=== PATIENT | male | born 2000 | race Hispanic/Latino ===

== ENCOUNTER 2020-05-17 19:09 | Inpatient (IN) | payer SELFPAY ==
[~2020-05-17] VITALS: Ht 154.9 cm; Wt 41.2 kg
[2020-05-17] MEDS ORDERED: IBUPROFEN 400 MG TABLET ONE (19:51)
[2020-05-17] MEDS ORDERED: ACETAMINOPHEN 325 MG TAB ONE (19:52)
[2020-05-17] MEDS ORDERED: CYCLOBENZAPRINE HCL 10 MG TABLET ONE (19:52)
[2020-05-17 20:49] LABS: BASOPHILS % (AUTO) 0.4 % (0.0-5.0); EOSINOPHILS % (AUTO) 0.6 % (0.0-8.0); HEMATOCRIT 46.4 % (42-54); LYMPHOCYTES % (AUTO) 16.6 % (21.0-51.0); MEAN CORPUSCULAR HGB CONC 34.9 g/dL (32.0-36.0); MEAN CORPUSCULAR VOLUME 85.9 fL (80-100); MONOCYTES % (AUTO) 4.4 % (3.0-13.0); NEUTROPHILS % (AUTO) 77.7 % (40.0-77.0); PLATELET COUNT (AUTO) 269 K/uL (130-400); RED CELL DISTRIBUTION WIDTH 12.4 % (11.0-15.5); WHITE BLOOD COUNT (AUTO) 9.4 K/uL (4.8-10.8)
[2020-05-17 21:02] LABS: CREATININE 0.8 mg/dL (0.5-1.5); POTASSIUM 3.6 mmol/L (3.5-5.1)
[2020-05-17] MEDS ORDERED: KETAMINE 50MG/ML SYRINGE 50 MG/ML DISP.SYRIN IV ONE (21:03)
[2020-05-17 21:06] LABS: ALBUMIN 4.6 g/dL (3.5-5.0); BILIRUBIN,TOTAL 0.3 mg/dL (0.2-1.0); INR 1.1 (0.85-1.15); PROTHROMBIN TIME 11.7 SEC (9.6-11.6)
[2020-05-17 21:36] LABS: AMPHET/METH SCREEN,URINE NEGATIVE (NEGATIVE); BARBITURATE SCREEN, URINE NEGATIVE (NEGATIVE); BENZODIAZEPINES SCREEN,URINE NEGATIVE (NEGATIVE); CANNABINOID SCREEN,URINE NEGATIVE (NEGATIVE); COCAINE SCREEN,URINE NEGATIVE (NEGATIVE); OPIATE SCREEN,URINE NEGATIVE (NEGATIVE); PHENCYCLIDINE SCREEN,URINE NEGATIVE (NEGATIVE)
[2020-05-17] MEDS ORDERED: ACETAMINOPHEN 325 MG TAB PO PRN ×2 (22:30)
[2020-05-17] MEDS ORDERED: ONDANSETRON HCL 4 MG/2 ML VIAL IV PRN (22:30)
[2020-05-18] MEDS ORDERED: ONDANSETRON HCL 4 MG/2 ML VIAL ONE (09:36)
[2020-05-18] MEDS ORDERED: FAMOTIDINE/PF 20 MG/2 ML VIAL IV ONE ×2 (09:37→20:00)
[2020-05-18] MEDS ORDERED: MORPHINE SULFATE 2 MG/ML 1ML SYG ONE ×2 (09:37→19:59)
[2020-05-18] MEDS: FAMOTIDINE/PF 20 MG/2 ML VIAL IV SCH (21:00)
[2020-05-19] VITALS (7 sets, daily range): BP systolic 103–127; BP diastolic 59–78
[2020-05-19] MEDS ORDERED: MORPHINE SULFATE 2 MG/ML 1ML SYG ONE ×2 (01:20→01:57)
[2020-05-19] MEDS: ACETAMINOPHEN-CODEINE 300/30MG TAB PO PRN (06:13)
[2020-05-19 07:04] LABS: BASOPHILS % (AUTO) 0.6 % (0.0-5.0); EOSINOPHILS % (AUTO) 1.5 % (0.0-8.0); MEAN CORPUSCULAR HGB CONC 34.4 g/dL (32.0-36.0); MEAN CORPUSCULAR VOLUME 87.2 fL (80-100); MONOCYTES % (AUTO) 5.4 % (3.0-13.0); NEUTROPHILS % (AUTO) 72.4 % (40.0-77.0); PLATELET COUNT (AUTO) 231 K/uL (130-400); RED BLOOD CELL COUNT(AUTO) 5.16 MIL/uL (4.50-6.20); RED CELL DISTRIBUTION WIDTH 12.3 % (11.0-15.5); WHITE BLOOD COUNT (AUTO) 8.1 K/uL (4.8-10.8)
[2020-05-19 07:18] LABS: CREATININE 0.9 mg/dL (0.5-1.5)
[2020-05-19] MEDS: FAMOTIDINE/PF 20 MG/2 ML VIAL IV SCH ×2 (08:50→19:46)
[2020-05-19] MEDS: MORPHINE SULFATE 2 MG/ML 1ML SYG IVP PRN (19:47)
[2020-05-20 03:41] VITALS: BP 108/65
[2020-05-20 05:08] LABS: BASOPHILS % (AUTO) 0.8 % (0.0-5.0); EOSINOPHILS % (AUTO) 3.2 % (0.0-8.0); HEMATOCRIT 42.8 % (42-54); MEAN CORPUSCULAR HEMOGLOBIN 29.9 pg (27.0-33.0); MEAN CORPUSCULAR HGB CONC 34.6 g/dL (32.0-36.0); MEAN CORPUSCULAR VOLUME 86.5 fL (80-100); NEUTROPHILS % (AUTO) 56.7 % (40.0-77.0); PLATELET COUNT (AUTO) 231 K/uL (130-400); RED BLOOD CELL COUNT(AUTO) 4.95 MIL/uL (4.50-6.20); RED CELL DISTRIBUTION WIDTH 12.3 % (11.0-15.5); WHITE BLOOD COUNT (AUTO) 6.3 K/uL (4.8-10.8)
[2020-05-20 05:19] LABS: CREATININE 0.9 mg/dL (0.5-1.5); POTASSIUM 3.9 mmol/L (3.5-5.1)
[2020-05-20 08:52] VITALS: BP 106/58
[2020-05-20] MEDS: FAMOTIDINE/PF 20 MG/2 ML VIAL IV SCH ×2 (08:54→19:59)
[2020-05-20 11:52] VITALS: BP 108/66
[2020-05-20 16:00] VITALS: BP 100/67
[2020-05-20 19:26] VITALS: BP 107/63
[2020-05-20 23:22] VITALS: BP 102/59
[2020-05-21 03:44] VITALS: BP 108/57
[2020-05-21 04:52] LABS: BASOPHILS % (AUTO) 0.8 % (0.0-5.0); HEMATOCRIT 42.4 % (42-54); LYMPHOCYTES % (AUTO) 30.2 % (21.0-51.0); MEAN CORPUSCULAR HEMOGLOBIN 29.5 pg (27.0-33.0); MEAN CORPUSCULAR HGB CONC 34.4 g/dL (32.0-36.0); MEAN CORPUSCULAR VOLUME 85.7 fL (80-100); MONOCYTES % (AUTO) 6.8 % (3.0-13.0); PLATELET COUNT (AUTO) 228 K/uL (130-400); RED BLOOD CELL COUNT(AUTO) 4.95 MIL/uL (4.50-6.20); RED CELL DISTRIBUTION WIDTH 11.9 % (11.0-15.5); WHITE BLOOD COUNT (AUTO) 6.3 K/uL (4.8-10.8)
[2020-05-21 05:13] LABS: CREATININE 0.8 mg/dL (0.5-1.5); POTASSIUM 3.7 mmol/L (3.5-5.1)
[2020-05-21 08:00] VITALS: BP 114/72
[2020-05-21] MEDS: FAMOTIDINE/PF 20 MG/2 ML VIAL IV SCH ×2 (09:32→20:10)
[2020-05-21 12:55] VITALS: BP 109/71
[2020-05-21] MEDS: MORPHINE SULFATE 2 MG/ML 1ML SYG IVP PRN (15:53)
[2020-05-21] MEDS: LACTULOSE 20 GM/30 ML UDCUP PO PRN (15:53)
[2020-05-21 16:00] VITALS: BP 102/67
[2020-05-21 19:36] VITALS: BP 114/57
[2020-05-21 23:38] VITALS: BP 108/57
[2020-05-22 03:43] VITALS: BP 111/71
[2020-05-22] MEDS: MORPHINE SULFATE 2 MG/ML 1ML SYG IVP PRN (04:08)
[2020-05-22 07:51] VITALS: BP 102/53
[2020-05-22] MEDS: FAMOTIDINE/PF 20 MG/2 ML VIAL IV SCH ×2 (09:10→20:06)
[2020-05-22 11:18] VITALS: BP 99/48
[2020-05-22 16:00] VITALS: BP 109/50
[2020-05-22] MEDS: LACTULOSE 20 GM/30 ML UDCUP PO PRN (17:16)
[2020-05-22 20:00] VITALS: BP 116/57
[2020-05-23] VITALS: BP 106/62
[2020-05-23 04:00] VITALS: BP 104/69
[2020-05-23 07:42] VITALS: BP 109/59
[2020-05-23] MEDS: FAMOTIDINE/PF 20 MG/2 ML VIAL IV SCH ×2 (08:12→20:16)
[2020-05-23] MEDS: LACTULOSE 20 GM/30 ML UDCUP PO PRN (08:12)
[2020-05-23 10:38] VITALS: BP 110/55
[2020-05-23 16:28] VITALS: BP 110/57
[2020-05-23] MEDS: MORPHINE SULFATE 2 MG/ML 1ML SYG IVP PRN (17:38)
[2020-05-23 20:00] VITALS: BP 102/65
[2020-05-24] VITALS (7 sets, daily range): BP systolic 96–111; BP diastolic 54–64
[2020-05-24] MEDS: FAMOTIDINE/PF 20 MG/2 ML VIAL IV SCH ×2 (08:13→20:13)
[2020-05-24] MEDS: ACETAMINOPHEN-CODEINE 300/30MG TAB PO PRN (15:16)
[2020-05-24] MEDS: MORPHINE SULFATE 2 MG/ML 1ML SYG IVP PRN (15:42)
[2020-05-24 19:25] LABS: HEMOGLOBIN A1C 5.2 % (4.0-6.0)
[2020-05-25] VITALS (10 sets, daily range): BP systolic 100–147; BP diastolic 60–108
[2020-05-25 05:40] LABS: BASOPHILS % (AUTO) 0.7 % (0.0-5.0); EOSINOPHILS % (AUTO) 3.8 % (0.0-8.0); HEMATOCRIT 43.5 % (42-54); LYMPHOCYTES % (AUTO) 26.3 % (21.0-51.0); MEAN CORPUSCULAR HEMOGLOBIN 29.3 pg (27.0-33.0); MEAN CORPUSCULAR HGB CONC 34.3 g/dL (32.0-36.0); MEAN CORPUSCULAR VOLUME 85.5 fL (80-100); NEUTROPHILS % (AUTO) 61.9 % (40.0-77.0); PLATELET COUNT (AUTO) 264 K/uL (130-400); RED BLOOD CELL COUNT(AUTO) 5.09 MIL/uL (4.50-6.20); RED CELL DISTRIBUTION WIDTH 11.9 % (11.0-15.5); WHITE BLOOD COUNT (AUTO) 7.6 K/uL (4.8-10.8)
[2020-05-25 05:59] LABS: INR 1.12 (0.85-1.15); PROTHROMBIN TIME 11.9 SEC (9.6-11.6)
[2020-05-25 06:01] LABS: PARTIAL THROMBOPLASTIN TIME 30.1 SEC (26.3-35.5)
[2020-05-25 06:08] LABS: CREATININE 0.8 mg/dL (0.5-1.5); POTASSIUM 3.8 mmol/L (3.5-5.1)
[2020-05-25] MEDS: FAMOTIDINE/PF 20 MG/2 ML VIAL IV SCH ×2 (11:34→20:18)
[2020-05-25] MEDS: MORPHINE SULFATE 2 MG/ML 1ML SYG IVP PRN (11:35)
[2020-05-25] MEDS ORDERED: CEFAZOLIN SODIUM 1 GM VIAL IVP PRN (12:00)
[2020-05-25] MEDS ORDERED: CEFAZOLIN SODIUM 1 GM VIAL ONE (15:05)
[2020-05-25] MEDS ORDERED: ONDANSETRON HCL 4 MG/2 ML VIAL ONE (17:07)
[2020-05-25] MEDS ORDERED: SUCCINYLCHOLINE CHLORIDE 20 MG/ML 10 ML VIAL ONE (17:07)
[2020-05-25] MEDS ORDERED: DEXAMETHASONE SOD PHOSPHATE 10MG/ML 1ML VIAL ONE (17:07)
[2020-05-25] MEDS ORDERED: LIDOCAINE PF 2% 5ML ABBOJECT ONE (17:07)
[2020-05-25] MEDS ORDERED: NEOSTIGMINE 5MG/5ML SYR IV ONE (17:08)
[2020-05-25] MEDS ORDERED: MIDAZOLAM HCL 1 MG/ML 2ML VIAL ONE (17:08)
[2020-05-25] MEDS ORDERED: ROCURONIUM 10MG/1ML SYR 10 MG/ML ML ONE (17:08)
[2020-05-25] MEDS ORDERED: FENTANYL CITRATE PF 50 MCG/1 ML 2ML VIAL ONE (17:08)
[2020-05-25] MEDS ORDERED: GLYCOPYRROLATE 1 MG/5 ML SYRINGE ONE (17:08)
[2020-05-25] MEDS ORDERED: PROPOFOL 10 MG/ML 20ML VIAL IV ONE (17:08)
[2020-05-25 17:37] LABS: ABG BASE EXCESS -3.6 mmol/L (-2.0-3.0); ABG HCO3 21.1 mmol/L (21.0-28.0); ABG OXYGEN SATURATION 99.1 % (95.0-99.0); ABG PCO2 37 mmHg (35-48)
[2020-05-25] MEDS ORDERED: VANCOMYCIN HCL 1 GM VIAL ONE (18:01)
[2020-05-25] MEDS ORDERED: BUPIVACAINE/PF 0.5% 10ML VIAL ONE (18:07)
[2020-05-25] MEDS ORDERED: LIDOCAINE HCL 1% 20 ML VIAL ONE (18:07)
[2020-05-25] MEDS ORDERED: VANCOMYCIN HCL 1 GM VIAL TP ONE (18:25)
[2020-05-25] MEDS ORDERED: MEPERIDINE-PF 25 MG/ML SYG ONE (18:26)
[2020-05-25] MEDS ORDERED: NOREPINEPHRINE BITARTRATE 1 MG/1 ML ML IV ONE (18:26)
[2020-05-25] MEDS ORDERED: TRAMADOL HCL 50 MG TABLET PO PRN ×2 (19:30)
[2020-05-25] MEDS ORDERED: ACETAMINOPHEN 325 MG TAB PO PRN (19:30)
[2020-05-25] MEDS: KETOROLAC TROMETHAMINE 30MG/ML IV SCH (20:18)
[2020-05-26] VITALS (14 sets, daily range): BP systolic 98–145; BP diastolic 53–98
[2020-05-26] MEDS: KETOROLAC TROMETHAMINE 30MG/ML IV SCH ×4 (01:30→14:01)
[2020-05-26 03:35] LABS: BASOPHILS % (AUTO) 0.2 % (0.0-5.0); EOSINOPHILS % (AUTO) 0.1 % (0.0-8.0); HEMATOCRIT 36.7 % (42-54); LYMPHOCYTES % (AUTO) 7.7 % (21.0-51.0); MEAN CORPUSCULAR HGB CONC 33.8 g/dL (32.0-36.0); MEAN CORPUSCULAR VOLUME 85.9 fL (80-100); MONOCYTES % (AUTO) 8.3 % (3.0-13.0); NEUTROPHILS % (AUTO) 83.5 % (40.0-77.0); PLATELET COUNT (AUTO) 224 K/uL (130-400); RED BLOOD CELL COUNT(AUTO) 4.27 MIL/uL (4.50-6.20); RED CELL DISTRIBUTION WIDTH 11.9 % (11.0-15.5); WHITE BLOOD COUNT (AUTO) 12.5 K/uL (4.8-10.8)
[2020-05-26 03:40] LABS: CREATININE 0.7 mg/dL (0.5-1.5); POTASSIUM 4.2 mmol/L (3.5-5.1)
[2020-05-26] MEDS: FAMOTIDINE/PF 20 MG/2 ML VIAL IV SCH ×2 (08:15→20:14)
[2020-05-26] MEDS ORDERED: KETOROLAC TROMETHAMINE 30MG/ML IV PRN (19:00)
[2020-05-26] MEDS: MORPHINE SULFATE 2 MG/ML 1ML SYG IVP PRN (20:58)
[2020-05-27] VITALS (7 sets, daily range): BP systolic 111–139; BP diastolic 60–74
[2020-05-27] MEDS: MORPHINE SULFATE 2 MG/ML 1ML SYG IVP PRN ×2 (04:08→10:35)
[2020-05-27 06:50] LABS: BASOPHILS % (AUTO) 0.4 % (0.0-5.0); EOSINOPHILS % (AUTO) 1.8 % (0.0-8.0); HEMATOCRIT 34.4 % (42-54); LYMPHOCYTES % (AUTO) 11.5 % (21.0-51.0); MEAN CORPUSCULAR HEMOGLOBIN 30.4 pg (27.0-33.0); MEAN CORPUSCULAR HGB CONC 34.9 g/dL (32.0-36.0); MEAN CORPUSCULAR VOLUME 87.1 fL (80-100); MONOCYTES % (AUTO) 9.5 % (3.0-13.0); NEUTROPHILS % (AUTO) 76.5 % (40.0-77.0); PLATELET COUNT (AUTO) 207 K/uL (130-400); RED BLOOD CELL COUNT(AUTO) 3.95 MIL/uL (4.50-6.20); RED CELL DISTRIBUTION WIDTH 12.2 % (11.0-15.5)
[2020-05-27 07:07] LABS: CREATININE 0.7 mg/dL (0.5-1.5); POTASSIUM 3.7 mmol/L (3.5-5.1)
[2020-05-27] MEDS: FAMOTIDINE/PF 20 MG/2 ML VIAL IV SCH ×2 (09:24→20:07)
[2020-05-28] MEDS: MORPHINE SULFATE 2 MG/ML 1ML SYG IVP PRN (00:27)
[2020-05-28 03:41] LABS: BASOPHILS % (AUTO) 0.5 % (0.0-5.0); EOSINOPHILS % (AUTO) 2.7 % (0.0-8.0); HEMATOCRIT 36.4 % (42-54); MEAN CORPUSCULAR HEMOGLOBIN 29.2 pg (27.0-33.0); MEAN CORPUSCULAR HGB CONC 33.8 g/dL (32.0-36.0); MEAN CORPUSCULAR VOLUME 86.5 fL (80-100); MONOCYTES % (AUTO) 9.5 % (3.0-13.0); NEUTROPHILS % (AUTO) 70.1 % (40.0-77.0); PLATELET COUNT (AUTO) 239 K/uL (130-400); RED BLOOD CELL COUNT(AUTO) 4.21 MIL/uL (4.50-6.20); WHITE BLOOD COUNT (AUTO) 8.8 K/uL (4.8-10.8)
[2020-05-28 03:50] LABS: CREATININE 0.7 mg/dL (0.5-1.5); POTASSIUM 3.6 mmol/L (3.5-5.1)
[2020-05-28 04:09] VITALS: BP 122/69
[2020-05-28 07:31] VITALS: BP 119/71
[2020-05-28] MEDS: FAMOTIDINE/PF 20 MG/2 ML VIAL IV SCH ×2 (09:22→20:45)
[2020-05-28 11:56] VITALS: BP 116/71
[2020-05-28 15:51] VITALS: BP 112/68
[2020-05-28 19:31] VITALS: BP 138/72
[2020-05-29 00:22] VITALS: BP 117/68
[2020-05-29 04:18] VITALS: BP 116/65
[2020-05-29 05:43] LABS: BASOPHILS % (AUTO) 0.8 % (0.0-5.0); HEMATOCRIT 38.6 % (42-54); LYMPHOCYTES % (AUTO) 24.1 % (21.0-51.0); MEAN CORPUSCULAR HEMOGLOBIN 29.7 pg (27.0-33.0); MEAN CORPUSCULAR HGB CONC 34.5 g/dL (32.0-36.0); MEAN CORPUSCULAR VOLUME 86.2 fL (80-100); MONOCYTES % (AUTO) 9.3 % (3.0-13.0); NEUTROPHILS % (AUTO) 60.6 % (40.0-77.0); PLATELET COUNT (AUTO) 277 K/uL (130-400); RED BLOOD CELL COUNT(AUTO) 4.48 MIL/uL (4.50-6.20); RED CELL DISTRIBUTION WIDTH 11.9 % (11.0-15.5); WHITE BLOOD COUNT (AUTO) 6.5 K/uL (4.8-10.8)
[2020-05-29 06:04] LABS: CREATININE 0.7 mg/dL (0.5-1.5); POTASSIUM 3.9 mmol/L (3.5-5.1)
[2020-05-29 08:00] VITALS: BP 111/80
[2020-05-29] MEDS: FAMOTIDINE/PF 20 MG/2 ML VIAL IV SCH (09:00)
[2020-05-29 12:05] VITALS: BP 115/64
[2020-05-29 16:00] VITALS: BP 111/73
== END 2020-05-29 19:35 | disposition home or self-care (01) | DRG 165 ==
LOC: EDH 19:09 → EDHIP 19:10 → 4BH 05-19 01:53 → 4CH 05-19 10:31 → 2DH 05-25 16:30 → 4DH 05-26 18:03
PROVIDERS: ADMIT Internal Medicine; ATTEND Internal Medicine
PROC: 0B5N0ZZ Destruction of Right Pleura, Open Approach (ICD-10-PCS; 2020-05-25)
PROC: 3E0L3GC Introduction of Other Therapeutic Substance into Pleural Cavity, Percutaneous Approach (ICD-10-PCS; 2020-05-25)
PROC: 0BBC0ZZ Excision of Right Upper Lung Lobe, Open Approach (ICD-10-PCS; principal; 2020-05-25 17:07)
PROC: 0W9B30Z Drainage of Left Pleural Cavity with Drainage Device, Percutaneous Approach (ICD-10-PCS; 2020-05-26)
DX: J93.11 Primary spontaneous pneumothorax (principal); F12.90 Cannabis use, unspecified, uncomplicated; J45.909 Unspecified asthma, uncomplicated; J93.82 Other air leak; J98.4 Other disorders of lung; Z20.822 Contact with and (suspected) exposure to COVID-19; Z56.0 Unemployment, unspecified
CPT/HCPCS: 36415; 71045; 71046; 71250; 80048; 80053; 80305; 82435; 82803; 82947; 83036; 83605; 84132; 84295; 85018; 85025; 85610; 85730; 86850; 86900; 86901; 87426; 93005; 97039; A4344; A7048; G0378; J0330; J0690; J1100; J1885; J2001; J2175; J2250; J2405; J2704; J2710; J3010; J3370; J3490; J7030; J7040